=== PATIENT | female | born 2005 | race Two or more races ===

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

== ENCOUNTER 2024-01-22 13:55 | Outpatient (AMB) | payer OTHER, SELFPAY ==
--- NOTE | 2024-01-22 14:06 | A.OFFVIS_ITS ---
Vital Signs 01/22/24 14:07 Height 5 ft 5 in Weight 107 lb BMI 17.8 Intake Visit Reasons: ? infection Diesel Tractor Engine Mechanic Required: No Information Interpreted: non-clinical & clinical Flume Maker: Flume Maker Present (Joanne LEAL) Accompanied by: Self / Same As Patient Allergies No Known Allergies Allergy (Verified 01/22/24 14:07) HPI Comments Details: Patient is here today with concerns that she has some random irritation, itching, burning and slight odor externally. She went approximately 2 weeks ago to her primary care at [facility] and had been tested for everything she reports on her cell phone portal that everything was normal for BV, Trichomonas, yeast, GC, chlamydia and even a urine culture or analysis was completed was negative. She denies any pelvic pain or urinary symptoms. She admits to being sexually active with the same long-term monogamous partner. Denies any recent antibiotics, currently taking a oral vaginal health pro biotic [id number]. She is currently a IUD user and reports light spotting for her cycle which is dark brown in color and currently has some bleeding today. [facility] Medical History (Updated 01/22/24 @ 14:27 by Beena Resendez CNM) (Unknown) Anxiety Patient denies medical problems Surgical History [place] teeth removed Family History Maternal Grandfather Diabetes mellitus Maternal Grandmother Leukemia Social History Household Members: Family Both parents involved: Yes Caregiver staying overnight: No Housing: Apartment Are you a primary skin care therapist to a significant other at home: No Do you presently have visiting nurse or other home services: No 75 years or older and lives alone: No Alcohol intake: former Patient Tobacco Use Status: Never used Tobacco Substance Use Type: Marijuana Agree to transfusion: Yes Current occupational status: employed 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 Current occupational exposures/hazards: No Gender identity: Female Cognitive needs: No Hearing needs: No Vision needs: No Female Reproductive History Menstrual Age of Menarche: 12 Review of Systems Const All systems reviewed & are unremarkable except as noted in HPI and below Physical Exam Vital Signs: BMI result Body Mass Index 17.8 Const General: cooperative, healthy appearing and no acute distress Orientation/consciousness: patient oriented x3 GI Inspection: Yes normal to inspection Palpation (GI): Soft to palpation and Other GI palpation findings present (Nontender) Rectal Exam - Female: visual inspection normal General: Yes bladder normal to palpation External Female Exam: normal appearance of the urethra Speculum Exam - Vagina: normal appearance of the vagina, normal palpation, normal vaginal discharge and vaginal bleeding Speculum Exam - Cervix: normal appearance of the cervix, normal palpation and Other cervical findings present (IUD strings present) Bimanual exam- vagina & uterus: normal bimanual exam, normal palpation, uterine size normal, bladder normal to palpation, normal palpation, uterine shape normal and non-tender Bimanual Exam- Adnexa, other: normal adnexae OB/external & speculum: vaginal bleeding Neuro General: patient oriented x3 Assessment & Plan Assessment & Plan (1) Vulvar itching: Code(s): L29.2 - Pruritus vulvae (2) Dermoid cyst: Code(s): D36.9 - Benign neoplasm, unspecified site Category: Medical Plan Instructions: Clean with warm water, no soaps, scented products. Wear loose, cotton underclothes, avoid tight outer clothing. Await results for BV panel. Follow-up on dermoid cyst, ultrasound to be scheduled an appointment to discuss results. Schedule annual exam. All of her questions and concerns were addressed to the best of my ability and shared decision making. She is agreeable to the plan of care. This note is constructed using voice recognition software. While every effort has been made to ensure accuracy, violin repairer errors may have been included. Orders: Orders Bacterial Vaginosis Panel Today D36.9 - Benign neoplasm, unspecified site, N89.8 - Other specified noninflammatory disorders of vagina US pelvic and transvaginal Today D36.9 - Benign neoplasm, unspecified site Coding Level of Care Code Est Pt Level 3 (36869) Diagnoses Vulvar itching L29.2 Dermoid cyst D36.9
[2024-01-22 14:07] VITALS: BMI 17.8
== END 2024-01-22 14:18 | disposition home or self-care (01) ==
LOC: HO.HWS 13:55
PROVIDERS: PCP Pediatrics; Visit Provider Advanced Practice Midwife
DX: L29.2 Pruritus vulvae (principal); D36.9 Benign neoplasm, unspecified site
CPT/HCPCS: 99213

== ENCOUNTER 2024-01-22 13:55 | Outpatient (REF) | payer OTHER, SELFPAY ==
[2024-01-23 09:33] LABS: Bacterial Vaginosis PCR NEGATIVE (Negative); Candida Group PCR NOT DETECTED (Not Detect); Candida glab krusei PCR NOT DETECTED (Not Detect); Trichomonas vaginalis PCR NOT DETECTED (Not Detect)
== END 2024-01-22 13:56 | disposition home or self-care (01) ==
LOC: HO.LNP 13:55
PROVIDERS: PCP Pediatrics; Visit Provider Advanced Practice Midwife
DX: N89.8 Other specified noninflammatory disorders of vagina (principal); L29.2 Pruritus vulvae; D36.9 Benign neoplasm, unspecified site; Z97.5 Presence of (intrauterine) contraceptive device
CPT/HCPCS: 0352U; 99212

== ENCOUNTER 2024-01-26 15:16 | Outpatient (REF) | payer OTHER, SELFPAY ==
--- NOTE | ~2024-01-26 | US_ITS ---
EXAMINATION: US PELVIS CLINICAL INFORMATION: Follow-up left ovarian dermoid tumor; the last menstrual period was on 01/25/2024. COMPARISON: CT abdomen pelvis dated 04/20/2020; pelvic ultrasound dated 11/06/2021. TECHNIQUE: Ultrasound of the pelvis is performed using both transabdominal and transvaginal transducers along with Doppler. Transvaginal imaging is performed due to inadequate visualization transabdominally. FINDINGS: Uterus: The uterus is anteverted and anteflexed. The uterus measures 7.3 x 3.2 x 4.5 cm. The double wall endometrial thickness is 5 mm. An intrauterine device is seen, properly situated within the endometrial canal. The uterus is smooth in contour and has normal myometrial echogenicity. No visible fibroid. Adnexa: Both ovaries are visualized. There is normal color flow to the adnexa. There is no ovarian torsion. There is no pelvic ascites or fluid collection. Right ovary measures 3.6 x 1.4 x 1.5 cm, volume 4.0 mL. Left ovary measures 4.5 x 2.7 x 3.4 cm, volume 21.6 mL. The left ovary contains a 3.3 x 1.8 x 2.4 cm mixed attenuation dermoid, with shadowing. On the ultrasound examination of 11/24/2021, this measured 3.2 x 2.5 x 0.5 cm. US/US pelvic and transvaginal IMPRESSION: 1. A 3.3 cm left ovarian dermoid is redemonstrated. Gynecology evaluation and management is recommended. 2. An intrauterine device is seen, properly situated within the endometrial canal.
== END 2024-01-26 15:17 | disposition home or self-care (01) ==
LOC: HO.US 15:16
PROVIDERS: PCP Pediatrics; Visit Provider Advanced Practice Midwife
DX: D36.9 Benign neoplasm, unspecified site (principal)
CPT/HCPCS: 76830; 76856

== ENCOUNTER 2024-04-26 08:44 | Outpatient (AMB) | payer OTHER, SELFPAY ==
--- NOTE | 2024-04-26 08:46 | A.OFFVIS_ITS ---
Vital Signs 04/26/24 08:47 Height 5 ft 5 in BP 90/56 L Intake Visit Reasons: Mirena Removal consult Intake Note: pt states wants to remove Kyleena because of discharge, odor and doesn't feel bladder empties completely Allergies No Known Allergies Allergy (Verified 04/26/24 08:47) HPI Comments Details: Patient is here today for a consult for Kyleena removal due to vaginal odor, discharge, 4-5 yeast infections and UTI's since the IUD-was seen at urgent care no records available. Additional follow up for left dermoid cyst. She denies any pelvic pain. Currently not sexually active. [facility] [place] Medical History (Updated 01/22/24 @ 14:27 by Beena Resendez CNM) (Unknown) Anxiety Patient denies medical problems Surgical History Lindsay teeth removed Family History Maternal Grandfather Diabetes mellitus Maternal Grandmother Leukemia Social History Household Members: Family Housing: Apartment Are you a primary critical care paramedic to a significant other at home: No Do you presently have visiting nurse or other home services: No Alcohol intake: former Patient Tobacco Use Status: Never used Tobacco Substance Use Type: Marijuana Agree to transfusion: Yes Current occupational status: employed 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 Current occupational exposures/hazards: No Gender identity: Female Cognitive needs: No Hearing needs: No Vision needs: No Female Reproductive History Menstrual Age of Menarche: 12 control method: progestin IUCD (Kyleena 10/30/22) Review of Systems Const All systems reviewed & are unremarkable except as noted in HPI and below Physical Exam Vital Signs: Last Vital Signs BP 90/56 L 04/26/24 08:47 Const General: cooperative, healthy appearing and no acute distress Orientation/consciousness: patient oriented x3 GI Inspection: Yes normal to inspection Palpation (GI): Soft to palpation and Other GI palpation findings present (Nontender) Rectal Exam - Female: visual inspection normal General: Yes bladder normal to palpation External Female Exam: normal appearance of the urethra Speculum Exam - Vagina: normal appearance of the vagina, normal palpation and normal vaginal discharge Speculum Exam - Cervix: normal appearance of the cervix, normal palpation and Other cervical findings present (IUD strings present) Bimanual exam- vagina & uterus: normal bimanual exam, normal palpation, uterine size normal, bladder normal to palpation, normal palpation, uterine shape normal and non-tender Bimanual Exam- Adnexa, other: normal adnexae Neuro General: patient oriented x3 Results AMB Urinalysis, Automated UA Leukoctes 0 Leann/uL Last Edit by ELVIS Ashby on 04/26/24 08:56 UA Nitrite Negative Last Edit by Roxanne Butler Jean Marie on 04/26/24 08:56 UA Urobilinogen 0 mg/dL Last Edit by Roxanne Butler Jean Marie on 04/26/24 08:5 6 UA Protein 0 mg/dL Last Edit by ELVIS Ashby on 04/26/24 08:56 UA pH 6.0 Last Edit by Roxanne Butler Jean Marie on 04/26/24 08:56 UA Blood 0 Cale/uL Last Edit by Roxanne Butler Jean Marie on 04/26/24 08:56 UA Specific [place] 1.025 Last Edit by Roxanne Butler Jean Marie on 04/26/24 08:56 UA Ketone Negative Last Edit by ELVIS Ashby on 04/26/24 08:56 UA Bilirubin 0 mg/dL Last Edit by Roxanne Butler Jean Marie on 04/26/24 08:56 UA Glucose 0 mg/dL Last Edit by Roxanne Butler Jean Marie on 04/26/24 08:56 Results Reviewed Results Reviewed: Laboratory Last Values Urine pH (Auto) 6.0 04/26/24 08:55 Specific [place] (Auto) 1.025 04/26/24 08:55 Urine Protein (Auto) 0 mg/dL 04/26/24 08:55 Glucose (UA)(Auto) 0 mg/dL 04/26/24 08:55 Urine Ketones (Auto) Negative 04/26/24 08:55 Urine Blood (Auto) 0 Cale/uL 04/26/24 08:55 Urine Nitrite (Auto) Negative 04/26/24 08:55 Urine Bilirubin (Auto) 0 mg/dL 04/26/24 08:55 Urine Urobilinogen (Auto) 0 mg/dL 04/26/24 08:55 Leukocyte Esterase (Auto) 0 Leann/uL 04/26/24 08:[address] [address] Ultrasound Report Signed Patient: Sandy Pastor MR#: [id number] : 2005 Acct:[id number] Age/Sex: 18 / F ADM Date: 01/26/24 Loc: HO.US Attending Dr: Beena Resendez CNM Ordering Physician: Beena Resendez CNM Date of Service: 01/26/24 Procedure(s): US pelvic and transvaginal Accession Number(s): [id number] cc: Beena Resendez CNM; CAROLEE ROBBINS MD~ EXAMINATION: US PELVIS CLINICAL INFORMATION: Follow-up left ovarian dermoid tumor; the last menstrual period was on 01/25/2024. COMPARISON: CT abdomen pelvis dated 04/20/2020; pelvic ultrasound dated 11/06/2021. TECHNIQUE: Ultrasound of the pelvis is performed using both transabdominal and transvaginal transducers along with Doppler. Transvaginal imaging is performed due to inadequate visualization transabdominally. FINDINGS: Uterus: The uterus is anteverted and anteflexed. The uterus measures 7.3 x 3.2 x 4.5 cm. The double wall endometrial thickness is 5 mm. An intrauterine device is seen, properly situated within the endometrial canal. The uterus is smooth in contour and has normal myometrial echogenicity. No visible fibroid. Adnexa: Both ovaries are visualized. There is normal color flow to the adnexa. There is no ovarian torsion. There is no pelvic ascites or fluid collection. Right ovary measures 3.6 x 1.4 x 1.5 cm, volume 4.0 mL. Left ovary measures 4.5 x 2.7 x 3.4 cm, volume 21.6 mL. The left ovary contains a 3.3 x 1.8 x 2.4 cm mixed attenuation dermoid, with shadowing. On the ultrasound examination of 11/24/2021, this measured 3.2 x 2.5 x 0.5 cm. US/US pelvic and transvaginal IMPRESSION: 1. A 3.3 cm left ovarian dermoid is redemonstrated. Gynecology evaluation and management is recommended. 2. An intrauterine device is seen, properly situated within the endometrial canal. Dictated By: Jass Spencer MD Signed By: <Electronically signed by Jass Spencer MD in OV> 02/01/24 2154 DD/ 1552 TD/TT: Triage Assistant: SUNNY Assessment & Plan Assessment & Plan (1) Dermoid cyst: Code(s): D36.9 - Benign neoplasm, unspecified site Category: Medical (2) Vaginal discharge: Code(s): N89.8 - Other specified noninflammatory disorders of vagina (3) Encounter to discuss test results: Code(s): Z71.2 - Person consulting for explanation of examination or test findings Plan Discussed: Counseled regarding findings of: Dermoid cyst. Limitations of testing for diagnostic purposes. Further monitoring and evaluation is recommended with US, possible CT, or MRI study. If persists, or is indicated (Ca-125, Carbohydrate Antigen 19-9, & Carcinoembryonic Antigen) labs will be ordered and referral to [facility] or general gynecology for MD consult. Follow up in person for test results. Discussed the role of probiotics encouraged to start any time she goes on antibiotic. BV panel and GC chlamydia today. Urinalysis negative. Release records from urgent care to review. Has follow up scheduled next month for her annual will discuss further at the next visit. All of her questions and concerns were addressed to the best of my ability and shared decision making. She is agreeable to the plan of care. This note is constructed using voice recognition software. While every effort has been made to ensure accuracy, drawing hand errors may have been included. Orders: Orders AMB Urinalysis Automated Today R33.9 - Retention of urine, unspecified CA-125 Today D36.9 - Benign neoplasm, unspecified site, N83.299 - Other ovarian cyst, unspecified side Bacterial Vaginosis Panel Today N89.8 - Other specified noninflammatory disorders of vagina CT NG by PCR Today N89.8 - Other specified noninflammatory disorders of vagina Carbohydrate Antigen 19-9 Today D36.9 - Benign neoplasm, unspecified site Carcinoembryonic Antigen Today D36.9 - Benign neoplasm, unspecified site Coding Level of Care Code Est Pt Level 4 (35088) Diagnoses Dermoid cyst D36.9 Vaginal discharge N89.8 Encounter to discuss test results Z71.2
[2024-04-26 08:47] VITALS: BP 90/56
== END 2024-04-26 09:15 | disposition home or self-care (01) ==
PROVIDERS: PCP Pediatrics; Visit Provider Advanced Practice Midwife
DX: D36.9 Benign neoplasm, unspecified site (principal); N89.8 Other specified noninflammatory disorders of vagina; Z71.2 Person consulting for explanation of examination or test findings; R33.9 Retention of urine, unspecified
CPT/HCPCS: 99214

== ENCOUNTER 2024-04-26 08:44 | Outpatient (REF) | payer OTHER, SELFPAY ==
[2024-04-26 16:35] LABS: Bacterial Vaginosis PCR NEGATIVE (Negative); Candida Group PCR NOT DETECTED (Not Detect); Candida glab krusei PCR NOT DETECTED (Not Detect); Trichomonas vaginalis PCR NOT DETECTED (Not Detect)
[2024-04-26 16:59] LABS: CT PCR NOT DETECTED (Not Detect.); NG PCR NOT DETECTED (Not Detect.)
== END 2024-04-26 08:45 | disposition home or self-care (01) ==
LOC: HO.LAB 08:44
PROVIDERS: PCP Pediatrics; Visit Provider Advanced Practice Midwife
DX: D36.9 Benign neoplasm, unspecified site (principal); N89.8 Other specified noninflammatory disorders of vagina; Z71.2 Person consulting for explanation of examination or test findings
CPT/HCPCS: 0352U; 81003; 87491; 87591; 99212

== ENCOUNTER 2024-04-26 09:25 | Outpatient (REF) | payer OTHER, SELFPAY | END 2024-04-26 09:26 | disposition home or self-care (01) | LOC: HO.LNP 09:25 | PROVIDERS: Visit Provider Advanced Practice Midwife | DX: Z13.89 Encounter for screening for other disorder (principal) ==

== ENCOUNTER 2025-01-04 13:56 | Emergency (ER) | payer OTHER, SELFPAY ==
--- NOTE | ~2025-01-04 | XR_ITS ---
EXAMINATION: XR FINGER, RIGHT CLINICAL INFORMATION: lac to right 2nd digit COMPARISON: None available. TECHNIQUE: Three views of the right second digit. FINDINGS: There is soft tissue laceration to the distal second digit. There is no underlying bony fracture or radiopaque foreign body. Otherwise, no fracture, malalignment, or suspicious bone lesions. Joint spaces appear normal. No additional soft tissue abnormality. XR/XR finger RT min 2V IMPRESSION: Soft tissue laceration to the distal second digit. No underlying bony fracture or radiopaque foreign body. Electronically signed by: David Matta MD 01/04/2025 02:31 PM EDT
[2025-01-04 14:07] VITALS: BP 109/68; PULSE 87; RESP 18; TEMP 36.6; O2SAT 98; BMI 16.9
--- NOTE | 2025-01-04 14:12 | ED_ITS ---
HPI - Wound/Laceration General Chief Complaint: Wound/Laceration Stated Complaint: finger lac Time Seen by Provider: 01/04/25 15:10 Source: patient and family (patient's mother) Mode of arrival: ambulatory Limitations: no limitations History of Present Illness ED Provider: Re Braswell PA-C HPI narrative: 19 year old female without significant PMHx presents to the ED due to a right 2nd finger laceration. 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 Patient states that her tetanus status is up to date. She denies radicular symptoms and has complete range of motion of the digit, PMS intact. She denies fever, chest pain, SOB, numbness/tingling of the digit. Onset (ago): hour(s) Location: other (right 2nd digit) Extremity Location: right: hand Place: work Patient tetanus UTD: Yes Context: accidental and sharp object use (knife while cutting melon) Associated symptoms: none Treatments prior to arrival: bandage Related Data Home Medications ?Medication ?Instructions ?Recorded ?Confirmed levonorgestrel 17.5 mcg/24 hr (up intrauterine 09/04/23 to 5 yrs) 19.5mg intrauterine device (Kyleena) Previous Rx's ?Medication ?Instructions ?Recorded cephalexin 500 mg capsule 500 mg PO Q6H 7 days #28 caps 01/04/25 Allergies Allergy/AdvReac Type Severity Reaction Status Date / Time No Known Allergies Allergy Verified 01/04/25 14:09 Review of Systems Constitutional: Constitutional: Reports no additional constitutional complaints, Denies chills, Denies fever(s) and Denies night sweats Eyes: Eyes: Reports no additional eye complaints, Denies blurry vision, Denies change in vision, Denies diplopia, Denies eye discharge, Denies loss of vision and Denies eye pain ENT: Denies dizziness Cardiovascular: Cardiovascular: Reports no additional cardiovascular complaints, Denies chest pain, Denies lightheadedness, Denies Loss of Consciousness and Denies dyspnea Respiratory: Respiratory: Reports no additional respiratory complaints and Denies dyspnea Gastrointestinal: Gastrointestinal: Reports no additional gastrointestinal complaints, Denies abdominal pain, Denies melena, Denies hematochezia, Denies change in bowel habits and Denies change in stool character Genitourinary: Genitourinary: Denies hematuria, Denies urinary frequency, Denies dysuria, Denies urinary incontinence, Denies urinary hesitancy and Denies urinary urgency Musculoskeletal: Musculoskeletal: Reports no additional musculoskeletal complaints, Reports as per HPI, Denies numbness and Denies tingling Comments: right 2nd digit laceration Neurologic: Denies dizziness, Denies loss of vision, Denies numbness and Denies tingling Psychiatric: Psychiatric: Reports no additional psychiatric complaints Endocrine: Endocrine: Reports no additional endocrine complaints Hematologic/Lymphatic: Hematologic/Lymphatic: Reports no additional hematologic/lymphatic complaints Allergic/Immunologic: Allergic/Immunologic: Reports no additional allergic/immunologic complaints PMFSH Past Medical History Attestation statement: The following information was validated with the patient. (all information was validated with the patient's mother) Source: old records reviewed, obtained from family (patient's mother provided additional history and confirmed the history provided by the patient. ) and nursing notes reviewed Medical History (Unknown) Anxiety Patient denies medical problems Surgical History [place] teeth removed Family History Family History Maternal Grandfather Diabetes mellitus Maternal Grandmother Leukemia Social History Social History Household Members: Family Housing: Apartment Are you a primary director of career services to a significant other at home: No Do you presently have visiting nurse or other home services: No Alcohol intake: former Patient Tobacco Use Status: Never used Tobacco Substance Use Type: Marijuana Agree to transfusion: Yes Advance Directives: No Advance Directives Information Provided: Yes Do you have a plan to hurt others: No Plan Current occupational status: employed 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 Current occupational exposures/hazards: No Gender identity: Female Cognitive needs: No Hearing needs: No Vision needs: No Physical Exam Vital Signs: Vital Signs: Last Vital Signs Temp 98 F 01/04/25 15:58 Pulse 87 01/04/25 15:58 Resp 18 01/04/25 15:58 BP 109/68 01/04/25 15:58 Pulse Ox 98 01/04/25 15:58 O2 Del Method Room Air 01/04/25 15:58 BMI result Body Mass Index 16.9 Const: General: cooperative, no acute distress, alert and awake Nutritional Appearance: well nourished Orientation/consciousness: patient oriented x3 HEENT: Head: Yes normal to inspection and Yes atraumatic Ears: hearing grossly normal bilaterally and external ears normal General nose exam: Normal external nose present, no nasal discharge noted and no epistaxis Face and sinus: Yes normal facial exam, No abrasion and No laceration Mouth: Normal oral and palatal mucosa present, no drooling and no muffled voice Eyes: General: appearance normal, both eyes and all related structures Periorbital: periorbital findings normal Eyelids: Yes eyelids normal Conjunctivae: conjunctivae normal Pupils: Equal, round and reactive pupils present EOM: EOMs intact bilaterally Neck: Neck: Yes normal visual inspection, Yes full ROM and Yes no lymphadenopathy Resp: Effort & Inspection: normal respiratory effort and able to speak in complete sentences Neuro: General: patient oriented x3, moves all extremities and CN's II-XI intact bilaterally Cranial nerves: Yes Equal, round and reactive pupils present Cognition (Neuro): normal cognition Extrem: General: Yes normal to inspection, Yes full ROM and Yes capillary refill normal Right upper extremity: Extremity exam: right hand Details: normal capillary refill, neuromotor exam normal and laceration (palmar aspect of distal 2nd digit) Psych: Appearance: grossly normal Mental Status: mental status grossly normal Affect: normal affect Attitude: cooperative Thought process: Normal thought process present Thought content: Normal thought content present Insight: Good insight present (Psych) Course Course Course Narrative: This is a Rapid Medical Examination (RME) performed by Shayna Jung PA-C in triage. Full HPI, ROS, assessment and treatment plan per primary provider in the Main ED. 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 unsure of tdap status. PE/vitals: vital signs stable, finger wrapped in triage, area not visualized. 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 Patient states tetanus status is up to date. Patients vital signs are stable, is in no acute distress and is non-toxic appearing. Right hand x-ray ordered by provider in triage showed no acute process. On physical exam there is a 1.75 cm linear laceration of the right distal 2nd digit on the palmar aspect. Minimal gaping, no active bleeding. Patient has full ROM, PMS intact with appropriate capillary refill. Repaired the laceration with 5 simple interrupted sutures as per procedure note, without incident. Patient's PMS was intact prior to and after suture placement. Patient's finger was then cleaned and bandaged, without incident. Patient's PMS was intact prior to and after cleaning and bandaging. I explained my physical exam findings as well as all test results to the patient and the patient's mother. I answered all questions asked by the patient and the patient's mother. I stressed the importance of the patient taking her medication as directed (either prescribed or as the over the counter packaging recommends). I stressed the importance of the patient following up with her primary care provider. I stressed the importance of the patient having her (5) sutures removed in 7-10 days and not soaking the affected area. I stressed the importance of the patient performing daily wound checks and dressing changes. I stressed the importance of the patient returning to the emergency department immediately if her symptoms were to worsen or if she were to develop any numbness, tingling, dizziness, shortness of breath, difficulty breathing, chest pain, blurry vision, loss of vision, nausea, vomiting, abdominal pain, fever, chills, back pain, or any other complaints. Patient and the patient's mother verbalized agreement and understanding with this treatment plan and discharge. Differential Diagnosis Differential Diagnoses: The differential diagnosis associated with the presentation includes Trauma Laceration Contusion Hematoma Admission/Observation Consideration of admission/observation: Escalation of care including admission/observation considered Patient would have been admitted to the hospital had her work up had any findings where hospital admission was appropriate and her clinical presentation warranted hospital admission. Independent Interpretation I performed an independent interpretation of an: Plain X-Ray (right hand) Interpretation: I have personally reviewed the right finger X-ray and agree with radiologists interpretation. TECHNIQUE: Three views of the right second digit. FINDINGS: There is soft tissue laceration to the distal second digit. There is no underlying bony fracture or radiopaque foreign body. Otherwise, no fracture, malalignment, or suspicious bone lesions. Joint spaces appear normal. No additional soft tissue abnormality. XR/XR finger RT min 2V IMPRESSION: Soft tissue laceration to the distal second digit. No underlying bony fracture or radiopaque foreign body. Electronically signed by: David Matta MD 01/04/2025 02:31 PM EDT Radiology Impression Discussion of test interpretation with radiology: I have reviewed the radiologist's reading. Independent Historian Clinical information obtained from an independent historian. History obtained from or confirmed by: Parent (patient's mother provided additional history and confirmed the history provided by the patient.) External Record Review External record reviewed: Inpatient record and Outpatient record Prescription Management I considered prescription management with: Antibiotic (given the mechanism of injury - patient prescribed prophylactic antibiotic. ) Procedures Laceration Laceration 1: Site: other (palmar aspect of distal 2nd digit) Side (If applicable): right Size (cm): 1.75 Description: linear Depth: simple, single layer Local Anesthetic: lidocaine 1% Amount of anesthesia used (mL): 5 Pre-repair: wound explored and deep structures intact Skin layer closed with: other (prolene) Size (cm): 6-0 Number of sutures: 5 Technique: simple, interrupted Nerve Block Nerve Block 1: Time out performed: Yes Local Anesthetic: lidocaine 1% Amount of anesthesia used (mL): 5 Nerve Blocks: digital (right 2nd digit) Procedure Successful: Yes Patient Tolerated Procedure: well Complications: none Discharge Plan Discharge Clinical Impression: Laceration Patient Disposition: Home, Self-Care Instructions: Care For Your Stitches (DC) Additional Instructions: Do NOT soak the affected area. Have your (5) sutures removed in 7-10 days. Take your antibiotic as prescribed. After your stitches are removed and the scab has fallen off - apply sunscreen to the area every day for 1 full year to reduce scarring. Please be aware that some antibiotics cause issues with oral contraceptives - so if you are on an oral contraceptive please consider use of a secondary method to avoid unwanted . Please be sure to eat with your antibiotic as it can cause upset stomach. Given this was a work place injury - follow up with [facility]. Follow up with your primary care provider. Return to the emergency department immediately if your symptoms worsen or if you develop any numbness, tingling, dizziness, shortness of breath, difficulty breathing, chest pain, blurry vision, loss of vision, nausea, vomiting, abdominal pain, fever, chills, back pain, or any other complaints. Please see the information below about our Patient Portal. If you are not yet enrolled in the [facility] Patient Portal, you will receive an enrollment email invitation following your visit to any [facility] care setting. You may also self-enroll in the Patient Portal by visiting our website: [email or web address] The following information is required to access the Patient Portal: - Your [facility] Medical Record Number - Your personal home email address (must match what is in your electronic medical record, Registration staff can assist with this) - Name - Date of Capabilities of the Patient Portal: - Message some providers - View upcoming appointments - Access your health summary, medical history, and visit history - View current conditions and allergies - View procedure and lab results - View your medications, including guidelines, side effects, and precautions - Complete pre-appointment questionnaires requested by your provider - Ready summary reports of your office visits and procedures To access the Patient Portal Mobile Maddie, follow these directions: - Search [employer] in the Maddie Store or [place] [employer] - Download the Maddie - Search for [facility] - Enter your login/password Prescriptions: New cephalexin 500 mg capsule 500 mg PO Q6H 7 Days Qty: 28 0RF No Action Kyleena 17.5 mcg/24 hrs (5 yrs) 19.5 mg intrauterine device intrauterine Referrals: [facility] Family Medicine [Provider Group] (Call to establish and follow up with a primary care provider. If you already have a primary care provider, please follow up with them.) [facility] Primary Care, Diane [Provider Group] (Call to establish and follow up with a primary care provider. If you already have a primary care provider, please follow up with them.) [facility] Primary Care, Margarita [Provider Group] (Call to establish and follow up with a primary care provider. If you already have a primary care provider, please follow up with them.) [facility] Primary Care, Anam [Provider Group] (Call to establish and follow up with a primary care provider. If you already have a primary care provider, please follow up with them.) [facility] Primary Care, Yoandy Jerome [Provider Group] (Call to establish and follow up with a primary care provider. If you already have a primary care provider, please follow up with them.) [facility] [Provider Group] (Call to establish and follow up with [facility] given this was a work place injury. ) Stand Alone Forms: Work/School Release Interventions: ED Discharge Assessment Last Done: 01/04/25 15:58 Discharge Date/Time: 01/04/25 15:58 Print Language: Citizen Of [place]
[2025-01-04] MEDS: Lidocaine HCl 1 % MPF 5 ML VIAL SUBCUT (15:50)
[2025-01-04 15:58] VITALS: BP 109/68; PULSE 87; RESP 18; TEMP 36.6; O2SAT 98
--- OUTSIDE RECORDS SUMMARY | 2025-01-04 16:38 | XMS_ITS ---
Author Name [facility] Organization Unknown History of Medication Use Medication Directions Dispensed Refills Start Date End Date Stat us food supplemt, lactose-reduced (ENSURE ORIGINAL) liquid Take 2 Bottles by mouth daily 07/17/2021 active fluconazole (DIFLUCAN) 100 MG tablet 06/26/2021 active dicyclomine (BENTYL) 10 MG capsule Take one pill in the morning and an extra in the evening if needed. 08/27/2020 active Problems Problem Status Onset Date Problem Type Date of Resoluti on Source Pain of upper abdomen active 2019-12-23 ProblemAct [facility] Weight loss active 2019-12-23 ProblemAct [facility] Non-intractable vomiting with nausea active 2020-08-27 ProblemAct [facility] Nausea active 2019-12-23 ProblemAct [facility] Encounters Encounter Type Encounter Reason Primary Diagnosis Location Date Ambulatory [facility] 01/16/2022 Ambulatory [facility] 07/18/2021 Care Team Organization Name Specialty Phone Email Start Date End [facility] Primary Care 01/17/20222023
--- OUTSIDE RECORDS SUMMARY | 2025-01-04 16:38 | XMS_ITS | Clinical Summary ---
Author Organization [facility] 's Address [address] [place] [address] Care Team Providers Care Manufacturing Worker Name Role Phone Rachana Muñoz JOSIAH Primary Care Provider Source Comments Please note that some or all of the patient's information could have additional privacy protections. State laws allow health care providers to render certain types of treatment to minors without parental consent. Please do not assume that this information can be shared solely by obtaining just the consent of the patient's parent/guardian. Please determine if all or part of the patient's care was rendered without parent/guardian involvement. And, if so, obtain the minor's consent prior to disclosure.[facility] Allergies No known active allergies Medications hyoscyamine (LEVSIN/SL) 0.125 mg SL tablet Take by mouth every 4 (four) hours as needed for Cramping Active AFTERA 1.5 mg tablet TAKE 1 TABLET (1.5 MG TOTAL) BY MOUTH ONCE FOR 1 DOSE. 0 Active XULANE 150-35 mcg/24 hr APPLY 1 PATCH EACH WEEK FOR 3 WEEKS, THEN REMOVE FOR 1 WEEK. 0 Active dicyclomine (BENTYL) 10 MG capsuleIndicati ons:Weight loss,Nausea,Darrell n of upper abdomen,Non-int ractable vomiting with nausea Take one pill in the morning and an extra in the evening if needed. 60 capsule 3 0 Active Additional Information Patient not taking.Reported on 07/17/2021 food supplemt, lactose-reduced (ENSURE ORIGINAL) liquidIndicatio ns:Difficulty feeding self Take 1 Bottle by mouth 3 (three) times daily 90 Bottle 5 0 Active PROAIR HFA 90 mcg/actuation inhaler 1 Active fluconazole (DIFLUCAN) 100 MG tablet 1 Active OPTICHAMBER ARACELIS VHC Spacer 1 Active food supplemt, lactose-reduced (ENSURE ORIGINAL) liquidIndicatio ns:Difficulty feeding self Take 2 Bottles by mouth daily 60 carton 11 1 Active Active Problems Problem Noted Date Diagnosed Date Non-intractable vomiting with nausea 08/27/2020 Pain of upper abdomen 12/23/2019 Nausea 12/23/2019 Weight loss 12/23/2019 Family History Medical History Relation Name Comments No Known Problems Brother No Known Problems Father Asthma Maternal Grandfather Diabetes Maternal Grandfather Hyperlipidemia Maternal Grandfather Hypertension Maternal Grandfather Hyperlipidemia Maternal Grandmother Hypertension Maternal Grandmother Leukemia Maternal Grandmother No Known Problems Mother Substance abuse Paternal Grandmother unknown No Known Problems Sister Anesthesia problems Neg Hx Relation Name Status Comments Brother Alive Father Alive Maternal Grandfather Alive Maternal Grandmother Alive Mother Alive Paternal Grandfather unknown Alive Paternal Grandmother unknown Sister Alive Social History Tobacco Use Types Packs/Day Years Used Date Smoking Tobacco: Passive Smo ke Exposure - Never Smoker Smokeless Tobacco: Never Comments:mom smokes at home outside Other Needs Answer Date Recorded Anything else about your child you'd like help w ith? Not on file 05/22/2023 Share good news about positive changes: Not on f ile 05/22/2023 Comments Unknown Sex and Gender Information Value Date Recorded Sex Assigned at Not on file Legal Sex Female 10:55 AM EST Gender Identity Not on file Sexual Orientation Not on file Last Filed Vital Signs Vital Sign Reading Time Taken Comments Blood Pressure 103/60 07/17/2021 10:43 AM EST Pulse - - Temperature - - Respiratory Rate - - Oxygen Saturation - - Inhaled Oxygen Concentration - - Weight 43.2 kg (95 lb 3.8 oz) 07/17/2021 10:43 A M EST Height 164.8 cm (5' 4.88 ) 07/17/2021 10:[address] Body Mass Index 15.91 07/17/2021 10:43 AM EST Plan of Treatment Health Maintenance Due Date Last Done Comments DTaP/TDAP/TD VACCINES (1 - Tdap) 12/05/2011 ADOLESCENT HIV SCREENING 2017 COVID-19 Vaccine (1 - 2024-2 5 season) 2024 INFLUENZA (#1) 2024 NIRSEVIMAB VACCINES UNDER 8 MONTHS Aged Out No longer eligible based on patient's age to complete this topic Insurance [facility] [employer] ([employer]) Care Teams Manufacturing Worker Relationship Specialty Start Date End Date Rachana Muñoz CPNP [address] [facility] [address] [place] [address] PCP - General Pediatric Nurse Practitioner 10/27/19
== END 2025-01-04 15:58 | disposition home or self-care (01) ==
LOC: HO.ED 15:56
PROVIDERS: Emergency Provider Emergency Medicine
DX: S61.210A Laceration without foreign body of right index finger without damage to nail, initial encounter (principal); W26.0XXA Contact with knife, initial encounter; Y93.G1 Activity, food preparation and clean up; Y92.9 Unspecified place or not applicable; Y99.0 Civilian activity done for income or pay
CPT/HCPCS: 12001; 73140; 99282; 99284; J2003

== ENCOUNTER → 2025-01-04 14:10 | Outpatient (BNV) | payer OTHER, SELFPAY | PROVIDERS: Visit Provider Radiology Diagnostic Radiology | DX: S61.200A Unspecified open wound of right index finger without damage to nail, initial encounter (principal) | CPT/HCPCS: 73140 ==

== ENCOUNTER 2025-02-02 14:39 | Outpatient (REF) | payer OTHER, SELFPAY ==
[2025-02-02 21:27] LABS: Bacterial Vaginosis PCR NEGATIVE (Negative); Candida Group PCR NOT DETECTED (Not Detect); Candida glab krusei PCR NOT DETECTED (Not Detect); Trichomonas vaginalis PCR NOT DETECTED (Not Detect)
[2025-02-02 22:04] LABS: CT PCR NOT DETECTED (Not Detect.); NG PCR NOT DETECTED (Not Detect.)
== END 2025-02-02 14:40 | disposition home or self-care (01) ==
LOC: HO.LAB 14:39
PROVIDERS: Visit Provider Advanced Practice Midwife
DX: Z01.419 Encounter for gynecological examination (general) (routine) without abnormal findings (principal); R10.2 Pelvic and perineal pain; D36.9 Benign neoplasm, unspecified site; Z20.2 Contact with and (suspected) exposure to infections with a predominantly sexual mode of transmission; T83.32XA Displacement of intrauterine contraceptive device, initial encounter
CPT/HCPCS: 81003; 81025; 81515; 87491; 87591; 99212; 99395; 99459

== ENCOUNTER 2025-02-02 14:39 | Outpatient (AMB) | payer OTHER, SELFPAY ==
--- NOTE | 2025-02-02 14:40 | A.OFFVIS_ITS ---
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 Doing well with ordnance mechanic concerns: History of dermoid, had referral to [facility] had ultrasound completed but did not follow up, no records available. Admits to pelvic pain and frequency of urination at times. Regular monthly menses w/cramping, has Kyleena IUD. Currently is not sexually active, partner incarcerated until end of February. She denies vaginal itching or irritation. STI screening offered; she accepts, did not declines blood work. Admits to having stress and difficulty maintaining her weight, takes Ensure when needed. Denies family history of breast, ovarian or colon cancer. [facility] Medical History (Updated 02/02/25 @ 15:17 by Beena Resendez CNM) IUD (intrauterine device) in place Pelvic pain IUD strings lost Anxiety Patient denies medical problems Surgical History (Updated 02/02/25 @ 15:12 by Beena Resendez CNM) History of dermoid cyst excision [place] teeth removed Family History Maternal Grandfather Diabetes mellitus Maternal Grandmother Leukemia Social History (Updated 02/02/25 @ 15:20 by Beena Resendez CNM) Household Members: Family and Children Housing: Apartment Are you a primary day care assistant to a significant other at home: No Do you presently have visiting nurse or other home services: No Alcohol intake: former Patient Tobacco Use Status: Never used Tobacco Substance Use Type: Marijuana Trauma History: Prior relationship no longer involved Agree to transfusion: Yes Current occupational status: employed Current occupation: [employer] Current occupational exposures/hazards: No Gender identity: Female Cognitive needs: No Hearing needs: No Vision needs: No Female Reproductive History Menstrual Age of Menarche: 12 Date of last menstrual period: 01/24/25 control method: progestin IUCD (Kyleena 10/30/22) Total pregnancies: 1 Full term: 1 Number of Living Children: 1 Review of Systems Const All systems reviewed & are unremarkable except as noted in HPI and below Reports as per HPI Eyes Reports no additional complaints ENT Reports no additional complaints Card Reports no additional complaints Resp Reports no additional complaints GI Reports as per HPI and Reports no additional complaints Reports as per HPI Musc Reports no additional complaints Skin/Breast Reports as per HPI Neuro Reports no additional complaints Psych Reports no additional complaints Endo Reports no additional complaints Alireza/Lymph Reports no additional complaints Aller/Immun Reports no additional complaints Physical Exam Vital Signs: Last Vital Signs BP 90/58 L 02/02/25 14:42 BMI result Body Mass Index 16.0 Const General: cooperative, healthy appearing, no acute distress, well developed and alert Orientation/consciousness: patient oriented x3 HEENT Head: Yes normal to inspection Eyes General: appearance normal, both eyes and all related structures Neck Neck: Yes normal visual inspection Thyroid: Thyroid normal Chest Chest palpation & inspection: normal inspection of the chest and other (no puckering, dimpling, peau de orange, retraction, discharge, masses) Breast/axilla inspection: normal inspection of the breasts Breast/axilla palpation: normal palpation of the breasts Resp Effort & Inspection: normal respiratory effort GI Inspection: Yes normal to inspection Palpation (GI): Soft to palpation Rectal Exam - Female: deferred General: Yes bladder normal to palpation External Female Exam: normal external appearance and normal appearance of the urethra Speculum Exam - Vagina: normal appearance of the vagina, normal palpation and normal vaginal discharge Speculum Exam - Cervix: normal palpation and Other cervical findings present ( IUD strings not visualized or palpated) Bimanual exam- vagina & uterus: normal bimanual exam, normal palpation, uterine size normal, bladder normal to palpation, normal palpation and non-tender Bimanual Exam- Adnexa, other: no masses Skin General skin exam: no rashes or lesions noted Rashes: no rashes Neuro General: patient oriented x3 Cognition (Neuro): normal cognition Extrem General: Yes normal to inspection Psych Attitude: cooperative Thought process: Normal thought process present Results AMB Test Urine AMB Test Urine Negative Last Edit by ELVIS Ashby on 02/02/25 15:15 AMB Urinalysis, Automated UA Leukoctes 0 Leann/uL Last Edit by ELVIS Ashby on 02/02/25 15:15 UA Nitrite Negative Last Edit by Roxanne Butler [facility] on 02/02/25 15:15 UA Urobilinogen 0 mg/dL Last Edit by Roxanne Butler [facility] on 02/02/25 15:1 5 UA Protein 0 mg/dL Last Edit by Roxanne Butler, [facility] on 02/02/25 15:15 UA pH 7.5 Last Edit by Roxanne Butler [facility] on 02/02/25 15:15 UA Blood 0 Cale/uL Last Edit by Roxanne Butler [facility] on 02/02/25 15:15 UA Specific [place] 1.015 Last Edit by Roxanne Butler [facility] on 02/02/25 15:15 UA Ketone Negative Last Edit by Roxanne Butler [facility] on 02/02/25 15:15 UA Bilirubin 0 mg/dL Last Edit by Roxanne Butler [facility] on 02/02/25 15:15 UA Glucose 0 mg/dL Last Edit by Roxanne Butler [facility] on 02/02/25 15:15 Assessment & Plan Assessment & Plan (1) Encounter for well woman exam with routine gynecological exam: Code(s): Z01.419 - Encounter for gynecological examination (general) (routine) without abnormal findings Category: Medical Plan: Discussed: Current recommendations for pap smears per ASCCP guidelines. Breast awareness and periodic breast exams. Maintain a healthy lifestyle including a well balanced diet and routine exercise. Use condoms for STI and prevention. Urine dip today is negative, UPT is negative. Patient verbalizes understanding and agrees to the plan of care. She was given opportunity to ask questions and all questions were answered to the best of my ability. RTO in one year for annual ordnance mechanic examination. This note is constructed using voice recognition software. While every effort has been made to ensure accuracy, furnace worker errors may have been included. (2) IUD strings lost: Code(s): T83.32XA - Displacement of intrauterine contraceptive device, initial encounter Category: Medical Qualifiers: Encounter type: initial encounter Qualified Code(s): T83.32XA - Displacement of intrauterine contraceptive device, initial encounter Plan: Plan pelvic ultrasound to determine position of IUD. Follow up visit to discuss test results tele visits okay pending results. The patient expressed understanding and agreement with the plan of care. All of her questions and concerns were addressed to the best of my ability. (3) Pelvic pain: Code(s): R10.2 - Pelvic and perineal pain Category: Medical Plan: Monitor symptoms and report any pain increase her changes. The patient expressed understanding and agreement with the plan of care. All of her questions and concerns were addressed to the best of my ability. (4) Dermoid cyst: Code(s): D36.9 - Benign neoplasm, unspecified site Category: Medical Plan Plan pelvic ultrasound to follow up on cyst. Obtained [facility] current records on last evaluation. Follow up for test results and plan of care. The patient expressed understanding and agreement with the plan of care. All of her questions and concerns were addressed to the best of my ability. Total time I personally spent on visit and management today: 20 minutes. Time spent included review of pertinent office notes in the electronic health record; review of laboratory and imaging results; review of personal family medical history; performing physical exam; discussing diagnosis and plan of care with the patient; documenting the encounter in the EMR. This note is constructed using voice recognition software. While every effort has been made to ensure accuracy, furnace worker errors may have been included. Orders: Orders Bacterial Vaginosis Panel Today Z20.2 - Contact with and (suspected) exposure to infections with a predominantly sexual mode of transmission CT NG by PCR Today Z20.2 - Contact with and (suspected) exposure to infections with a predominantly sexual mode of transmission US pelvic and transvaginal Today D36.9 - Benign neoplasm, unspecified site, R10.2 - Pelvic and perineal pain, T83.32XA - Displacement of intrauterine contraceptive device, initial encounter AMB HCG Urine Test Today R10.2 - Pelvic and perineal pain AMB Urinalysis Automated Today R10.2 - Pelvic and perineal pain Coding Level of Care Code Est Pt Level 2 (03105) Est Pt Prev Care 18-39y([id number]) Diagnoses Encounter for well woman exam with routine gynecological exam Z01.419 Intrauterine contraceptive device threads lost, initial encounter T83.32XA Encounter type: initial encounter Pelvic pain R10.2 Dermoid cyst D36.9
[2025-02-02 14:42] VITALS: BP 90/58; BMI 16.0
== END 2025-02-02 15:20 | disposition home or self-care (01) ==
LOC: HO.HWS 14:39
PROVIDERS: Visit Provider Advanced Practice Midwife
DX: Z01.419 Encounter for gynecological examination (general) (routine) without abnormal findings (principal); T83.32XA Displacement of intrauterine contraceptive device, initial encounter; R10.2 Pelvic and perineal pain; D36.9 Benign neoplasm, unspecified site
CPT/HCPCS: 99212; 99395; 99459

== ENCOUNTER 2025-02-02 15:04 | Outpatient (REF) | payer OTHER, SELFPAY | END 2025-02-02 15:05 | disposition home or self-care (01) | LOC: HO.LNP 15:04 | PROVIDERS: Visit Provider Advanced Practice Midwife | DX: Z13.89 Encounter for screening for other disorder (principal) ==

== ENCOUNTER 2025-03-07 16:03 | Outpatient (REF) | payer OTHER, SELFPAY ==
--- NOTE | ~2025-03-07 | US_ITS ---
CLINICAL HISTORY: T83.32XA - Displacement of intrauterine contraceptive device, initial en... US pelvis transvaginal Comparison: None provided Findings: Transvaginal scanning performed. The uterus is 8.4 cm length. Normal myometrium. Endometrium 4 mm thickness. No IUD identified. Right ovary 3.0 x 2.1 x 1.8 cm. Left ovary 4.3 x 3.3 x 2.9 cm. There is a 2.5 x1 0.7 x 2.9 cm left adnexal structure containing calcification. Normal color Doppler of both ovaries. No free fluid. IMPRESSION: No IUD is identified. Possible left adnexal dermoid. Comparisons imaging not provided. This document has been electronically signed by: Magan Pereira MD on 03/07/2025 18:35:33
--- OUTSIDE RECORDS SUMMARY | 2025-03-07 16:25 | XMS_ITS ---
Author Name [facility] Organization Unknown History of Medication Use Medication [...] Pain of upper abdomen active 2019-12-23 ProblemAct [facility] Weight loss active 2019-12-23 ProblemAct [facility] Non-intractable vomiting with nausea active 2020-08-27 ProblemAct [facility] Nausea active 2019-12-23 ProblemAct [facility] Encounters Encounter Type Encounter Reason Primary Diagnosis Location Date Ambulatory [facility] 01/16/2022 Ambulatory [facility] 07/18/2021 Care Team Organization Name Specialty Phone Email Start Date End Da te [facility] Primary Care 01/17/20222023
== END 2025-03-07 16:04 | disposition home or self-care (01) ==
LOC: HO.US 16:03
PROVIDERS: Visit Provider Advanced Practice Midwife
DX: T83.32XA Displacement of intrauterine contraceptive device, initial encounter (principal); R10.2 Pelvic and perineal pain; D36.9 Benign neoplasm, unspecified site
CPT/HCPCS: 76830; 76856

== ENCOUNTER → 2025-03-07 16:06 | Outpatient (BNV) | payer OTHER, SELFPAY | PROVIDERS: Visit Provider Radiology Vascular & Interventional Radiology | DX: T83.32XA Displacement of intrauterine contraceptive device, initial encounter (principal) | CPT/HCPCS: 76830; 76856 ==